=== PATIENT | male | born 1970 | race Caucasian/White ===

== ENCOUNTER 2019-04-25 18:08 | Emergency (ER) | payer SELFPAY ==
[~2019-04-25] VITALS: Ht 177.8 cm; Wt 79.1 kg
[~2019-04-25 18:08] MED LIST: IBUP-1542 PO
[2019-04-25 18:18] VITALS: BP 136/57; PULSE 96; RESP 20; Ht 177.8 cm; Wt 79.1 kg
--- NOTE | 2019-04-25 19:24 | ERD ---
ER Documentation Chief Complaint Chief Complaint L wrist pain x2d: 'helped push car'. swelling noted; +sens/ mvmt. HPI This is a 48-year-old male gentleman who presents to emergency room with complaint of left wrist pain increasing over the last 2 days. States pain started after he helped push [place]'s [place]. Denies any obvious injury like fall, strike, twisting or bending. + Swelling noted, NAD. ROS All systems reviewed and are negative except as per history of present illness. Medications Home Meds Active Scripts Ibuprofen* (Motrin*) 600 Mg Tab, 600 MG PO Q6, #30 TAB Prov:GIANNI MANCUSO [employer]TER 04/25/19 Allergies Allergies: Coded Allergies: No Known Allergy (Unverified , 04/25/19) PMhx/Soc Medical and Surgical Hx: pt denies Medical Hx, pt denies Surgical Hx Hx Alcohol Use: Yes Hx Substance Use: No Hx Tobacco Use: No Smoking Status: Never smoker Physical Exam Vitals Vital Signs Date Temp Pulse Resp B/P (MAP) Pulse Ox O2 O2 Flow FiO2 Time Delivery Rate 04/25/19 98.9 96 20 136/57 96 18:18 (83) Physical Exam Const: No acute distress Head: Atraumatic Eyes: Normal Conjunctiva ENT: Normal External Ears, Nose and Mouth. Neck: Full range of motion. No meningismus. No cervical spinal tenderness Resp: Clear to auscultation bilaterally Cardio: Regular rate and rhythm, no murmurs Ext: No cyanosis, or edema. LUE: no point tenderness to shoulder, elbow, fingers. +point tenderness to distal radius and all carpals. Sensation intact, +swelling, no bruising, no abrasions, ltd ROM of wrist due to pain. Neur: Awake and alert, clear speech, steady gait Psych: Normal Mood and Affect Results 24 hrs Current Medications Medications Dose Sig/Celeste Start Time Status Last (Trade) Ordered Route PRN Stop Time Admin Dose Reason Admin Ibuprofen 600 mg ONCE ONCE 04/25/19 DC 04/25/19 (Motrin) PO 19:30 19:34 04/25/19 19:31 Ibuprofen 600 mg ONCE ONCE 04/25/19 DC (Motrin) PO 20:30 04/25/19 21:17 Procedures/MDM PROCEDURES/MDM DIAGNOSTIC IMAGING: Read by radiologist. Hand x-ray IMPRESSION: Mild soft tissue swelling without evidence for osseous abnormality involving the left hand. Wrist x-ray IMPRESSION: Unremarkable exam of the left wrist. PROCEDURES: Splint Assessment: Neurovascularly intact post splint placement with good fit. -Medications: Ibuprofen Patient tolerated medication well with no adverse reactions. Patient reported improvement in pain. MDM: This is a 48-year-old male patient presents emergency room with complaint of pain and swelling in his left wrist increasing over 2 days after helping push car. X-ray does not reveal fracture, dislocation. Physical exam not suspicious for neurovascular injury. Symptoms most suggestive of sprain. Patient has been placed in splint and given instructions on care of wrist, follow-up, signs and symptoms of worsening of condition and when to seek emergent medical treatment. Patient's extremity symptoms have stabilized while they have been evaluated in the department and are appropriate for outpatient follow up. No evidence of compartment syndrome, neurologic injury, vascular injury, open joint, open fracture, tendon laceration, or foreign body. DISPOSITION and PLAN: RX: Ibuprofen The patient has been discharge home to follow-up with community physician. Departure Diagnosis: Primary Impression: Left wrist sprain Encounter type: initial encounter Qualified Codes: S63.502A - Unspecified sprain of left wrist, initial encounter Condition: Stable GIANNI MANCUSO NP Apr 25, 2019 19:24
[2019-04-25] MEDS ORDERED: IBUPROFEN 600 MG TAB PO ONE ×2 (19:30→20:30)
== END 2019-04-25 20:52 | disposition home or self-care (01) ==
LOC: FTE 18:08
DX: S63.502A Unspecified sprain of left wrist, initial encounter (principal); X50.0XXA Overexertion from strenuous movement or load, initial encounter; Y92.9 Unspecified place or not applicable